=== PATIENT | male | born 1935 | race Caucasian/White ===

== ENCOUNTER → 2023-11-24 19:44 | Outpatient (REF) | payer MEDICARE, OTHER, SELFPAY | LOC: MRI 19:44 | PROVIDERS: ATTENDING PHYSICIAN Student in an Organized Health Care Education/Training Program | DX: R26.81 Unsteadiness on feet (principal); G60.8 Other hereditary and idiopathic neuropathies; Z86.73 Personal history of transient ischemic attack (TIA), and cerebral infarction without residual deficits | CPT/HCPCS: 70553; A9575 ==

== ENCOUNTER → 2024-04-22 11:49 | Outpatient (REF) | payer MEDICARE, OTHER, SELFPAY | LOC: RAD 11:49 | PROVIDERS: ATTENDING PHYSICIAN Student in an Organized Health Care Education/Training Program | DX: R05.3 Chronic cough (principal) | CPT/HCPCS: 71046 ==

== ENCOUNTER 2024-09-20 10:29 | Day surgery (SDC) | payer MEDICARE, OTHER, SELFPAY ==
[2024-09-20] VITALS (7 sets, daily range): BP systolic 166–184; BP diastolic 62–114; BMI 27.1
--- NOTE | 2024-09-20 15:57 | ITS.CL.IMPLP ---
[employer] - Implant Loop
Implant Loop
Procedure Report:
Date of Procedure: September 20, 2024.
Procedure: Insertable Loop Recorder Explant.
Indication: Loop at the end of service.
Performing physician: Demian Mcneal MD, [facility].
Explant: [employer]; [employer], Model# [id number]; Serial# [id number] (implanted on 05/18/2022).
Technique: A time out was performed per protocol. The patient was prepped and draped in the usual fashion. Anesthesia was administered by the anesthesia staff. Local anesthetic was applied to the left prepectoral subcutaneous tissue. An incision
was made over the superior aspect of the device. Dissection was carried to the capsule. The capsule was entered. The old device was explanted. The pocket appeared normal. Hemostasis was excellent. The pocket was irrigated saline. The incision was
closed with 4-0 Monocryl suture. The skin was closed with steri-strips. There was no blood loss. There were no complications. No fluoroscopy was used.
Conclusion: Uncomplicated insertable loop explantation.
Recommendation: Routine incision care.
cc: Coy Mckeon MD, PhD and Loretta Au MD, PhD.
[2024-09-20] MEDS: NORVASC 5 MG PO (16:36)
== END 2024-09-20 16:52 | disposition home or self-care (01) ==
LOC: CATH 10:29
PROVIDERS: ATTENDING PHYSICIAN Internal Medicine Cardiovascular Disease; FAMILY PHYSICIAN Student in an Organized Health Care Education/Training Program
DX: Z09 Encounter for follow-up examination after completed treatment for conditions other than malignant neoplasm (principal); Z86.73 Personal history of transient ischemic attack (TIA), and cerebral infarction without residual deficits; I25.10 Atherosclerotic heart disease of native coronary artery without angina pectoris; I48.0 Paroxysmal atrial fibrillation; I10 Essential (primary) hypertension; E78.00 Pure hypercholesterolemia, unspecified; K21.9 Gastro-esophageal reflux disease without esophagitis; E11.9 Type 2 diabetes mellitus without complications; Q21.12 Patent foramen ovale; Z95.1 Presence of aortocoronary bypass graft; Z85.46 Personal history of malignant neoplasm of prostate; Z87.891 Personal history of nicotine dependence; Z79.02 Long term (current) use of antithrombotics/antiplatelets; Z79.82 Long term (current) use of aspirin
CPT/HCPCS: 33286

== ENCOUNTER 2024-10-10 12:13 | Emergency (ER) | payer MEDICARE, OTHER, SELFPAY ==
[2024-10-10 12:26] VITALS: BP 146/69
--- NOTE | 2024-10-10 13:21 | ED.GENMED ---
History of Present Illness
General
Chief Complaint: Back Pain
Source: patient
Time Seen by Provider: 10/10/24 13:04
History of Present Illness
History of Present Illness:
Note:
CHIEF COMPLAINT(S)
Acute back pain.
HISTORY OF PRESENT ILLNESS
An 89-year-old male with a past medical history of a mild stroke, mild cancer, and mild heart condition presents with acute onset of severe lower back pain, originating from the buttock and extending to the lumbar spine. The pain began a couple of
days ago, initially during a bowel movement, and it is described as sharp and intense. The patient denies any specific trauma or injury preceding the onset, although he considers that he might have twisted his back. The pain is exacerbated by
movement and relieved somewhat by pressure. There is no radiation of pain beyond the knees currently, though it did briefly extend lower once. The patient experienced a fall in the shower this morning, hitting his head without loss of consciousness
or persistent head symptoms. He denies neck pain, fever, or gastrointestinal bleeding. Use of aspirin for anticoagulation is noted, and acetaminophen was tried with minimal relief. The patient occasionally uses a cane for ambulation over long
distances. He denies dizziness, headache, or numbness associated with the current complaints and reports regular bowel movements.
ADDITIONAL HISTORY OBTAINED FROM SOURCES OTHER THAN THE PATIENT
According to family members, the patient occasionally uses a cane for longer distances.
PHYSICAL EXAM
- Nursing notes reviewed and vital signs reviewed.
- Musculoskeletal: Localized pain in the lumbar and buttock region with movement. Pain not worsened on palpation; pressure appears to relieve discomfort.
- Neurological: No loss of consciousness after fall. No acute neurological deficits noted. Mildly positive straight leg raise reproducing pain to the left buttock
Vascular 2+ DP pulse left foot
Skin is warm no rash
SOCIAL DETERMINANTS AFFECTING HEALTH
Family member mentions the patient occasionally uses a cane, suggesting potential balance issues.
DIFFERENTIAL DIAGNOSIS
The Differential Diagnosis includes, in no particular order and is not limited to:
- Lumbar strain or sprain
- Sciatica
- Herniated disc
- Vertebral fracture
- Spinal stenosis
- Degenerative disc disease
Past History
Past History
ED Past Medical History: CAD, Cancer, CVA (And TIAs), GERD, HTN, Hypercholesterolemia, NIDDM (Controlled) and Other (prostate cancer)
ED Past Surgical History: Other (urology)
Social History
Tobacco: Non-smoker
Employment: Employed
Phy Exam
Physical Exam
Physical Exam:
See above
Course
Orders/Labs/Results
Orders:
Orders
10/10/24 13:19
CT Head W/o Iv Contrast Urgent
Comment:
Reason For Exam: fall
CR Lumbar Spine 2 Or 3 Views Urgent
Comment:
Reason For Exam: back pain
CR Pelvis - 1 Or 2 Views Urgent
Comment:
Reason For Exam: left buttock pain
Vital Signs
Initial and Last Documented VS:
Initial Vital Signs
Temp Pulse Resp BP Pulse Ox
97.5 F 50 15 146/69 95
10/10/24 12:26 10/10/24 12:26 10/10/24 12:26 10/10/24 12:26 10/10/24 12:26
Last Documented Vital Signs
Temp Pulse Resp BP Pulse Ox
97.5 F 50 15 146/69 95
10/10/24 12:26 10/10/24 12:26 10/10/24 12:26 10/10/24 12:26 10/10/24 13:22
*Pulse Oximetry
SaO2: 95
Oxygen Mode of Delivery: Room air
*Critical Care Note
Total Time (30-74mins, 75-104mins- exclusive of procedures): Not Applicable
Update Note
Update Note:
CT head negative x-ray lumbar spine and sacrum negative. Suspect radiculopathy. Will prescribe prednisone and something for pain. Stable for discharge with follow-up
ED Attending Note
-
Portions of this chart may have been created with voice recognition software.� Occasional wrong word or��sound alike� substitutions may have occurred due to the inherent limitations of voice recognition software.
Discharge Plan
Departure
Patient Disposition: Home (Routine Discharge)
Date of Disposition: 10/10/24
Time of Disposition: 14:48
Patient with high blood pressure during this ER visit?: No
Discharge Problem:
Radiculopathy
Instructions: Radiculopathy (DC)
Prescriptions:
New
tramadol 50 mg tablet
50 mg PO Q8H PRN (Reason: Pain) Qty: 10 0RF
prednisone 20 mg tablet
40 mg PO DAILY 5 Days Qty: 10 0RF
No Action
gabapentin 300 MG capsule
300 mg PO HS
cholecalciferol (vitamin D3) [Vitamin D3] 1,000 UNIT capsule
1,000 unit PO DAILY
solifenacin [Vesicare] 10 MG tablet
10 mg PO QPM
pantoprazole [Protonix] [address] for susp in packet
40 mg PO DAILY
polyethylene glycol 3350 17 GRAMS powder in packet
17 grams PO PRN PRN (Reason: constipation)
fluticasone propionate 1 SPRAY spray,suspension
1 spray intranasal DAILY
Centrum Silver 1 EACH tablet
1 tab PO DAILY
meclizine 12.5 mg Tablet
12.5 mg PO TIDPRN PRN (Reason: dizziness)
vitamin B complex Tablet
1 tab PO DAILY
rosuvastatin 40 mg Tablet
40 mg PO QPM
clopidogrel 75 mg Tablet
75 mg PO DAILY 30 Days Qty: 30 2RF
aspirin 81 mg capsule
81 mg PO DAILY Qty: 30 2RF
Rx Instructions:
Last dose 08/14/22 and then stop
amlodipine 5 mg tablet
5 mg PO DAILY Qty: 90 5RF
Referrals:
Loretta Au MD [Family Provider, Internal Medicine]
Chris Gama MD [Active, Orthopedics]
Activity Restrictions/Additional Instructions:
Take medicine as directed. Please follow-up with back pain specialist. Use your walker when ambulating
Interventions
Interventions:
*Risk Screen - Suicide Last Done: 10/10/24 12:26
*General Assessment Last Done: 10/10/24 12:26
*Neglect/Abuse Screening Last Done: 10/10/24 12:26
*ED COVID-19 Vaccine History Last Done: 10/10/24 12:26
ED-Musculoskeletal Assessment Last Done: 10/10/24 13:34
Discharge Date and Time
Print Language: [id number]
[2024-10-10 13:35] VITALS: BMI 28.0
== END 2024-10-10 15:16 | disposition home or self-care (01) ==
LOC: EMR 12:13
PROVIDERS: EMERGENCY PHYSICIAN Emergency Medicine; FAMILY PHYSICIAN Student in an Organized Health Care Education/Training Program
DX: M54.16 Radiculopathy, lumbar region (principal); S09.90XA Unspecified injury of head, initial encounter; W18.2XXA Fall in (into) shower or empty bathtub, initial encounter; E11.9 Type 2 diabetes mellitus without complications; E78.00 Pure hypercholesterolemia, unspecified; I10 Essential (primary) hypertension; I25.10 Atherosclerotic heart disease of native coronary artery without angina pectoris; Z86.73 Personal history of transient ischemic attack (TIA), and cerebral infarction without residual deficits
CPT/HCPCS: 99284; 70450; 72100; 72170

== ENCOUNTER → 2025-04-10 12:59 | Outpatient (REF) | payer MEDICARE, OTHER, SELFPAY | LOC: REG 12:59 | PROVIDERS: ATTENDING PHYSICIAN Student in an Organized Health Care Education/Training Program | DX: R05.3 Chronic cough (principal); R09.89 Other specified symptoms and signs involving the circulatory and respiratory systems | CPT/HCPCS: 71046 ==